=== PATIENT | male | born 1975 | race Two or more races ===

== ENCOUNTER 2024-07-03 18:47 | Emergency (ER) | payer MEDICARE, MEDICAID ==
[~2024-07-03] VITALS: Ht 182.9 cm; Wt 82.0 kg
[2024-07-03 18:50] VITALS: O2SAT 100
[2024-07-03 19:46] LABS: CLARITY URINE CLEAR (CLEAR); COLOR URINE YELLOW (YELLOW); GLUCOSE URINE NEGATIVE (NEGATIVE); KETONES URINE NEGATIVE (NEGATIVE); LEUKOCYTE ESTERASE URINE NEGATIVE (NEGATIVE); NITRITE URINE NEGATIVE (NEGATIVE); OCCULT BLOOD URINE NEGATIVE (NEGATIVE); PH URINE >=9.0 (4.5-8.0); PROTEIN URINE TRACE (NEGATIVE); SPECIFIC GRAVITY URINE 1.013 (1.005-1.030)
[2024-07-03 20:24] LABS: *AMPHETAMINES SCREEN URINE NEGATIVE (NEGATIVE); *BARBITURATES SCREEN URINE NEGATIVE (NEGATIVE); *BENZODIAZEPINES SCREEN URINE NEGATIVE (NEGATIVE); *COCAINE SCREEN URINE NEGATIVE (NEGATIVE); METHADONE URINE SCREEN NEGATIVE (NEGATIVE); OPIATES URINE SCREEN NEGATIVE (NEGATIVE)
[2024-07-03 20:25] LABS: CANNABINOID URINE SCREEN PRESUMPTIVE POSITIVE (NEGATIVE); ECSTASY MDMA SCREEN URINE NEGATIVE (NEGATIVE); PHENCYCLIDINE URINE SCREEN NEGATIVE (NEGATIVE)
[2024-07-03 20:52] LABS: BACTERIA URINE NONE SEEN; RBC URINE NONE SEEN /hpf (0-2); SQUAMOUS EPITHELIAL CELL URINE NONE SEEN /lpf (RARE/1+); WBC URINE NONE SEEN /hpf (0-2)
[2024-07-04 00:18] LABS: BASOPHILS % 0.9 % (0.0-2.0); HEMATOCRIT. 43.8 % (42.0-52.0); HEMOGLOBIN. 14.6 g/dL (14.0-18.0); LYMPHOCYTES % 28.2 % (20.0-50.0); MEAN CORPUSCULAR HEMOGLOBIN 30.1 pg (28.0-32.0); MEAN CORPUSCULAR HGB CONC 33.2 g/dL (31.0-37.0); MEAN CORPUSCULAR VOLUME 90.7 fL (80.0-94.0); MONOCYTES % 8.5 % (2.0-8.0); NEUTROPHILS % 61.4 % (40.0-76.0); PLATELET 253 x1000/uL (130-400); RED BLOOD CELL COUNT 4.84 mill/uL (4.7-6.1); RED CELL DISTRIBUTION WIDTH 14.8 % (11.6-14.6); WHITE BLOOD COUNT 6.5 x1000/uL (4.5-11.0)
[2024-07-04 00:29] LABS: CHLORIDE 106 mEq/L (98-107); POTASSIUM 4.3 mEq/L (3.5-5.1); SODIUM 138 mEq/L (136-145)
[2024-07-04 00:30] LABS: CARBON DIOXIDE 24 mEq/L (21-32)
[2024-07-04 00:31] LABS: CALCIUM 9.7 mg/dL (8.7-10.4)
[2024-07-04 00:35] LABS: CREATININE 1.1 mg/dL (0.6-1.3); GLUCOSE 84 mg/dL (70-105)
[2024-07-04 00:36] LABS: UREA NITROGEN BLOOD 7 mg/dL (9-23)
[2024-07-04 00:37] LABS: ACETAMINOPHEN < 2 ug/mL (10-30)
[2024-07-04 00:47] LABS: ETHANOL BLOOD < 10 mg/dL (<10)
[2024-07-04 22:11] VITALS: BP 128/80; PULSE 88; RESP 18; TEMP 36.61404; O2SAT 100
== END 2024-07-05 01:49 ==
LOC: ER 18:47
DX: R45.851 Suicidal ideations (principal); F31.9 Bipolar disorder, unspecified; Z20.822 Contact with and (suspected) exposure to COVID-19; Z91.148 Patient's other noncompliance with medication regimen for other reason; Z86.59 Personal history of other mental and behavioral disorders
CPT/HCPCS: 36415; 80048; 80305; 80307; 80320; 80329; 81003; 85025; 87426; 99285; G0480